=== PATIENT | female | born 1985 | race Caucasian/White ===

== ENCOUNTER 2019-08-04 22:27 | Inpatient (IN) | payer BC ==
[~2019-08-04 22:27] MED LIST: Lidocaine 2% MPF 10 ML AMP (For Epidural Use) ONE
[2019-08-04] MEDS ORDERED: Ibuprofen 800 MG TAB PO PRN (23:00)
[2019-08-04] MEDS ORDERED: NS w/ Oxytocin 10 units 500 ML IV SCH (23:00)
[2019-08-04] MEDS ORDERED: Promethazine HCl 25 MG/ML VIAL IM PRN (23:00)
[2019-08-04] MEDS ORDERED: NS / Oxytocin 40 units/1000ml 1,000 ML IV PRN (23:00)
[2019-08-04] MEDS ORDERED: hydrALAZINE 20 MG/ML VIAL SLOW IVP PRN (23:00)
[2019-08-04] MEDS ORDERED: Lactated Ringer's 1,000 ML IV SCH (23:00)
[2019-08-04] MEDS ORDERED: Ondansetron PF 4 MG/2 ML Vial IVP PRN (23:00)
[2019-08-04] MEDS ORDERED: Lidocaine 1% (PF) 30 ML VIAL SC PRN (23:00)
[2019-08-04] MEDS ORDERED: HYDROcodone/Acetaminophen 5/325 mg Tablet PO PRN ×2 (23:00)
[2019-08-04] MEDS: Lactated Ringer's 1,000 ML IV SCH (23:30)
[2019-08-05 00:18] LABS: Hemoglobin 12.5 g/dL (12.0-16.0); Mean Corpuscular HGB CONC 35.4 g/dL (32.0-36.0); Mean Corpuscular Hemoglobin 32.4 pg (27.0-31.0); Mean Corpuscular Volume 91.6 fL (78.0-98.0); Mean Platelet Volume 8.6 fL (7.4-10.4); Platelet Count 220 thou/uL (130-400); RBC Distribution Width 11.3 % (11.5-14.5); Red Blood Cell (RBC) Count 3.86 mill/uL (4.20-5.40); White Blood Cell (WBC) Count 10.9 thou/uL (4.8-10.8)
[2019-08-05 00:34] VITALS: BMI 30.1
[2019-08-05] MEDS ORDERED: Butorphanol Tartrate 1 MG/ML VIAL ONE (00:41)
[2019-08-05] MEDS: Butorphanol Tartrate 1 MG/ML VIAL SLOW IVP PRN ×2 (00:46→02:30)
[2019-08-05 00:57] LABS: HBSAg Index 0.21 S/CO (0-0.99); Hep B Surf Ag Non-Reactive S/CO (NonReactive)
[2019-08-05 01:03] LABS: Syphilis Antibody Nonreactive (Nonreactive); Syphilis Antibody Index 0.04 S/CO (<1.00 Non-Reactive)
[2019-08-05] MEDS ORDERED: Fentanyl 4 mcg/Bup 0.1% Cadd 100 ML ONE ×2 (08:00→15:51)
[2019-08-05] MEDS ORDERED: EPHEDRINE 25 MG/5 ML SYRINGE SLOW IVP PRN (08:30)
[2019-08-05] MEDS ORDERED: Naloxone HCl 0.4 mg/ml Vial IVP PRN ×2 (08:30)
[2019-08-05] MEDS ORDERED: Promethazine HCl 25 MG/ML VIAL IM PRN (08:30)
[2019-08-05] MEDS ORDERED: diphenhydrAMINE 50 MG/ML VIAL IVP PRN (08:30)
[2019-08-05] MEDS ORDERED: Communication Order-Pharmacy FS SCH (08:30)
[2019-08-05] MEDS ORDERED: Acetaminophen 325 MG TAB PO PRN (08:30)
[2019-08-05] MEDS ORDERED: Ondansetron PF 4 MG/2 ML Vial IVP PRN (08:30)
[2019-08-05] MEDS ORDERED: Lactated Ringer's 500 ML IV PRN (08:30)
[2019-08-05] MEDS: Lactated Ringer's 1,000 ML IV SCH (08:35)
[2019-08-05] MEDS: Fentanyl 4 mcg/Bupivacaine 0.1% Cassette 100 ML EPIDURAL SCH ×2 (08:45→16:02)
[2019-08-05] MEDS: Dextrose 5%-Lactated Ringers 1,000 ML IV SCH (09:45)
[2019-08-05] MEDS ORDERED: Ampicillin 2 GM in Sodium Chloride 0.9% 100 ML IVPB SCH (16:45)
[2019-08-05] MEDS ORDERED: Gentamicin Sulfate 125 MG in Sodium Chloride 0.9% 100 ML IVPB SCH (16:45)
[2019-08-05] MEDS ORDERED: Acetaminophen 500 MG TAB PO SCH (16:45)
[2019-08-05] MEDS ORDERED: CEFAZOLIN 2 GM in Premix Bag 1 BAG IVPB SCH (23:15)
[2019-08-05] MEDS ORDERED: Azithromycin 500 MG in Sodium Chloride 0.9% 250 ML 250 ML IVPB SCH (23:15)
[2019-08-05] MEDS ORDERED: Bicitra 30 ML UDCUP PO SCH (23:15)
--- NOTE | 2019-08-05 23:19 | PDOC.EVN ---
Event Note - Event Note Event Note: Patient remains unchanged at 8/C/-1 station for >6 hours. Patient became febrile and treated for chorio with Ampicillin/Gentamicin. Oral tylenol was given...Then heart rate tracing was 200's with the fever. pitocin was stopped due to this. Patient respiked 2 hours later and single dose of 800 mg motrin given. Fever relieved and heart rate improved to 150's. Pitocin restarted. No further dilation or descent occurred... EXAM 8/c/-1. EFW 8 1/2-9 lbs....140-150....moderate variability. A/P: 32 y/o at 40-41 weeks. failure to progress/descend at 8 cm/-1 station with chorioamnionitis. Primary section...
[2019-08-05] MEDS: Ampicillin 2 GM in Sodium Chloride 0.9% 100 ML IVPB SCH (23:20)
[2019-08-05] MEDS ORDERED: MORPHINE 5 MG/10 ML PF VIAL ONE (23:20)
[2019-08-05] MEDS ORDERED: Dexamethasone 4 mg/ml Vial ONE (23:21)
[2019-08-05] MEDS ORDERED: Oxytocin 10 UNITS/ML VIAL ONE (23:21)
[2019-08-05] MEDS ORDERED: Ondansetron PF 4 MG/2 ML Vial ONE (23:21)
[2019-08-05] MEDS ORDERED: Ketorolac Tromethamine 30 MG/ML VIAL ONE (23:21)
[2019-08-05] MEDS ORDERED: Lidocaine 2% 10 ML INJ ONE (23:37)
[2019-08-06] MEDS ORDERED: Bupivacaine/Epinephrine 0.5% 10 ML VIAL ONE (00:06)
[2019-08-06] MEDS ORDERED: Fentanyl 100 MCG/2 ML VIAL ONE ×2 (00:06→00:10)
[2019-08-06] MEDS ORDERED: Ketorolac Tromethamine 30 MG/ML VIAL IVP PRN (00:23)
[2019-08-06] MEDS ORDERED: Meperidine HCl/PF 25 MG/ML VIAL SLOW IVP PRN (00:23)
[2019-08-06] MEDS ORDERED: Ondansetron HCl/PF 4 MG/2 ML Vial IVP PRN (00:23)
[2019-08-06] MEDS ORDERED: HYDROmorphone 2 MG/ML VIAL SLOW IVP PRN (00:23)
[2019-08-06] MEDS ORDERED: L&D-Morphine 4 MG/ML VIAL SLOW IVP PRN (00:23)
[2019-08-06] MEDS ORDERED: Promethazine HCl 25 MG/ML VIAL IM PRN (00:23)
[2019-08-06] MEDS ORDERED: Promethazine HCl 25 MG SUPP PR PRN (00:23)
[2019-08-06] MEDS ORDERED: Naloxone HCl 0.4 mg/ml Vial IV PRN (00:23)
[2019-08-06] MEDS ORDERED: Naloxone HCl 0.4 mg/ml Vial IVP PRN ×2 (00:23)
[2019-08-06] MEDS ORDERED: Ondansetron PF 4 MG/2 ML Vial IVP PRN (00:23)
[2019-08-06] MEDS ORDERED: Communication Order-Pharmacy FS SCH (00:30)
[2019-08-06] MEDS ORDERED: Ketorolac Tromethamine 30 MG/ML VIAL IVP SCH (00:30)
[2019-08-06] MEDS ORDERED: hydrALAZINE 20 MG/ML VIAL SLOW IVP PRN (02:49)
[2019-08-06] MEDS ORDERED: Lanolin Ointment 7 GM TUBE TOP PRN (02:49)
[2019-08-06] MEDS: Lactated Ringer's 1,000 ML IV SCH ×2 (02:54→05:58)
[2019-08-06] MEDS: Gentamicin Sulfate 80 MG in Premix Bag 1 BAG IVPB SCH ×3 (02:54→17:41)
[2019-08-06] MEDS: Dextrose 5%-Lactated Ringers 1,000 ML IV SCH (02:55)
[2019-08-06] MEDS: Simethicone Chewable 80 MG TAB PO PRN ×2 (04:04→10:46)
[2019-08-06] MEDS: Ampicillin 2 GM in Sodium Chloride 0.9% 100 ML IVPB SCH ×3 (05:57→18:36)
--- NOTE | 2019-08-06 06:24 | PDOC.PP ---
Post Progress Note Post Day #: 6 hrs Subjective: Doing well, awake and feels ok PO intake tolerated: yes Flatus: yes Ambulation: yes Vital Signs (12 hours) Temp Pulse Resp BP Pulse Ox 08/06/19 04:05 98.3 F 81 16 132/72 08/06/19 03:00 99.2 F 71 16 115/65 96 Weight Weight 210 lb - Physical Examination Respiratory: non-labored breathing Abdominal: lochia, no distention, appropriately TTP Extremities: negative homans (B) Neurological: no gross focal deficits Psychiatric: A&Ox3, normal affect Result Diagrams: 08/05/19 00:04 Additional Labs: Post Labs Blood Type A POSITIVE 08/05/19 00:32 Hep Bs Antigen Non-Reactive S/CO (NonReactive) 08/05/19 00:04 (1) delivery delivered Code(s): O82 - ENCOUNTER FOR DELIVERY WITHOUT INDICATION Status: Acute (2) Chorioamnionitis Code(s): O41.1290 - CHORIOAMNIONITIS, UNSP TRIMESTER, NOT APPLICABLE OR UNSP Status: Acute - Assessment/Plan POD 6 hrs doing well. Still on IV amp/gent...afebrile. CS dressing intact...remove at 24 hrs
[2019-08-06] MEDS ORDERED: Adacel (T-DAP) 0.5 ML SYRINGE IM ONE (09:00)
[2019-08-06] MEDS: diphenhydrAMINE 50 MG/ML VIAL IVP PRN (09:22)
[2019-08-06] MEDS: Docusate Calcium (SURFAK) 240 MG CAP PO SCH ×2 (10:46→22:12)
[2019-08-06] MEDS: Prenatal Vitamin 1 TAB PO SCH (10:46)
[2019-08-06] MEDS ORDERED: Sodium Chloride 0.9% 10 ML ONE (17:29)
[2019-08-06] MEDS ORDERED: Acetaminophen 500 MG TAB PO SCH (18:15)
[2019-08-06] MEDS: HYDROcodone/Acetaminophen 5/325 mg Tablet PO PRN (19:13)
[2019-08-07] MEDS: Ampicillin 2 GM in Sodium Chloride 0.9% 100 ML IVPB SCH ×3 (00:25→11:55)
[2019-08-07] MEDS: diphenhydrAMINE 50 MG/ML VIAL IVP PRN (01:12)
[2019-08-07] MEDS: Gentamicin Sulfate 80 MG in Premix Bag 1 BAG IVPB SCH ×2 (01:17→08:51)
--- NOTE | 2019-08-07 05:29 | PDOC.PP ---
Post Progress Note Post Day #: POD1 Subjective: Resting, no complaints. PO intake tolerated: yes Flatus: no Ambulation: yes Vital Signs (12 hours) Temp Pulse Resp BP 08/07/19 04:38 97.7 F 87 12 123/58 L 08/07/19 00:32 98.6 F 103 H 12 123/66 08/06/19 21:19 98.6 F 99 18 143/67 H Weight Weight 95.254 kg - Physical Examination General: NAD Respiratory: non-labored breathing Abdominal: no distention, appropriately TTP Skin: CS incision dry & intact Neurological: no gross focal deficits Psychiatric: normal affect Result Diagrams: 08/05/19 00:04 Additional Labs: Post Labs Blood Type A POSITIVE 08/05/19 00:32 Hep Bs Antigen Non-Reactive S/CO (NonReactive) 08/05/19 00:04 - Assessment/Plan Doing well s/p C/S. Cont. ABX x 48 hrs delivered. Advance diet, ambulate.
[2019-08-07 05:38] LABS: Hemoglobin 8.8 g/dL (12.0-16.0); Mean Corpuscular HGB CONC 33.3 g/dL (32.0-36.0); Mean Corpuscular Hemoglobin 31.5 pg (27.0-31.0); Mean Corpuscular Volume 94.6 fL (78.0-98.0); Mean Platelet Volume 7.9 fL (7.4-10.4); Platelet Count 197 thou/uL (130-400); RBC Distribution Width 11.6 % (11.5-14.5); White Blood Cell (WBC) Count 16.8 thou/uL (4.8-10.8)
[2019-08-07] MEDS: Ibuprofen 800 MG TAB PO SCH ×3 (06:20→22:48)
[2019-08-07] MEDS: Docusate Calcium (SURFAK) 240 MG CAP PO SCH ×2 (09:50→21:23)
[2019-08-07] MEDS: Prenatal Vitamin 1 TAB PO SCH (09:50)
[2019-08-07] MEDS: HYDROcodone/Acetaminophen 5/325 mg Tablet PO PRN (09:51)
[2019-08-07] MEDS: Simethicone Chewable 80 MG TAB PO PRN (09:51)
--- NOTE | 2019-08-07 10:00 | OP ---
DATE OF PROCEDURE: 08/06/2019 PREOPERATIVE DIAGNOSES: 1. 33-year-old white female, G1, P0, at 40 to 41 weeks. 2. Spontaneous onset of labor with Pitocin augmentation and failure to progress past 8 cm, -1 station. 3. Chorioamnionitis. POSTOPERATIVE DIAGNOSES: Delivered, in addition, right occiput posterior presentation. PROCEDURE PERFORMED: Primary low transverse section without extension. 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 COMPLICATIONS: None. COUNTS: Correct x2. ANTIBIOTICS: 2 g Ancef on-call to OR along with 500 mg of Zithromax. ESTIMATED BLOOD LOSS: 650 mL. PATHOLOGY: Placenta. FINDINGS: 1. Male , ROP presentation, weight 7 pounds 14 ounces. Apgars, 8 and 9. 2. Normal-appearing fallopian tubes, uterus, and ovaries. DISPOSITION: To recovery room, stable. DESCRIPTION OF PROCEDURE: The patient was taken back to the operating room, where adequate epidural anesthesia was achieved. She was prepped and draped in usual sterile fashion. A Pfannenstiel incision was made in the lower abdomen and it was carried down to the fascia. Fascia was nicked in the midline. Fascial incision was extended bilaterally with the use of curved Solis scissors. The rectus fascia was then dissected superiorly and inferiorly off the rectus muscle bellies. The rectus muscle bellies were divided in the midline. Peritoneal cavity was entered. The peritoneal incision was extended. A large Armand O retractor was placed. A lap sponge was placed to retract bowel in addition to this. The vesicouterine peritoneum was incised, and a bladder flap was created in usual fashion. A 2 cm hysterotomy incision was made in the lower uterine segment. This was extended via finger fractionation. The baby was delivered in the vertex presentation, noted to be ROP. The mouth and nares of the were bulb suctioned on the abdomen. The cord was doubly clamped and cut, and the baby was handed to the pediatric team in attendance. Usual cord blood was obtained. The placenta was manually extracted and sent to Pathology. The uterus was curetted of any remaining placental fragments with a dry laparotomy sponge. The hysterotomy incision was then closed with running locking #1 Monocryl suture. Good hemostasis being confirmed. The pelvis was irrigated, and hysterotomy incision was again inspected and noted to be hemostatic. Armand O retractor along with the additional lap sponge was removed. Again, the hysterotomy incision was inspected. Hemostasis was confirmed. The rectus muscle bellies were then inspected prior to fascial closure. They were noted to be hemostatic. The fascia was closed with 0 PDS x2 in running continuous fashion. Subcutaneous tissue was irrigated and noted to be hemostatic prior to skin approximation with jermaine. The surgery was terminated. No anesthetic or surgical complications occurred. Job ID: [id number]
[2019-08-08] MEDS: HYDROcodone/Acetaminophen 5/325 mg Tablet PO PRN ×2 (00:18→13:34)
[2019-08-08 00:33] VITALS: TEMP 98.3
[2019-08-08] MEDS: Ibuprofen 800 MG TAB PO SCH (07:44)
[2019-08-08] MEDS: Docusate Calcium (SURFAK) 240 MG CAP PO SCH (07:44)
[2019-08-08] MEDS: Prenatal Vitamin 1 TAB PO SCH (07:44)
--- NOTE | 2019-08-08 08:12 | PDOC.PP ---
Post Progress Note Post Day #: 3 Subjective: ready to go home. PO intake tolerated: yes Flatus: yes Ambulation: yes Vital Signs (12 hours) Temp Pulse Resp BP 08/07/19 23:00 98.3 F 94 18 135/79 Weight Weight 210 lb Result Diagrams: 08/07/19 05:20 Additional Labs: Post Labs Blood Type A POSITIVE 08/05/19 00:32 Hep Bs Antigen Non-Reactive S/CO (NonReactive) 08/05/19 00:04 - Assessment/Plan Post op day 3 from primary c/s for ftp/chorio. Afebrile. Doing well. D/c home. F /u staple removal incision check 4 days and 6 week post .
[2019-08-08 08:39] VITALS: BP 135/81
== END 2019-08-08 13:45 | disposition home or self-care (01) | DRG 788 ==
LOC: L&D/OP 22:27 → L&D 08-05 00:41 → 3SW 08-06 03:00
PROVIDERS: ADMIT Obstetrics & Gynecology; ATTEND Obstetrics & Gynecology
PROC: 10D00Z1 Extraction of Products of Conception, Low, Open Approach (ICD-10-PCS; principal; 2019-08-06)
DX: O41.1230 Chorioamnionitis, third trimester, not applicable or unspecified (principal); Z3A.40 40 weeks gestation of pregnancy; Z37.0 Single live birth; O66.40 Failed trial of labor, unspecified
CPT/HCPCS: 36415; 51702; 85027; 86780; 86850; 86900; 86901; 87340; 88307; 99285; J0290; J0456; J0595; J0690; J1100; J1200; J1580; J1885; J2001; J2274; J2310; J2405; J2590; J3010; J3490; J7050